=== PATIENT | female | born 1945 | race Caucasian/White ===

== ENCOUNTER 2016-12-03 05:57 | Day surgery (SDC) | payer MEDICARE ==
[~2016-12-03] VITALS: Ht 151.1 cm; Wt 62.8 kg
[~2016-12-03 05:57] MED LIST: CALC-191 PO; HYDR25TA PO; LISI10TA7 PO; OMEP-96 PO
--- OUTSIDE RECORDS SUMMARY | 2016-12-03 06:06 | XMS REPORT | Continuity of Care Document ---
Author Author [facility] Organization [facility] Address Unknown Phone Unavailable Allergies Active Description Code Type Severity Reaction Onset Reported/Identified Relationship to Patient Clinical Status Yes No Known Allergies Drug Allergy N/A N/A 11/24/2013 Yes No Known Drug Allergies Drug Allergy N/A N/A 11/24/2013 Yes No Known Food Allergies Food Allergy N/A N/A 11/24/2013 Medications Problems Date Dx Coded Attending Type Code Diagnosis Diagnosed By 11/24/2013 Wilton Cruz III, MD Final 276.8 HYPOPOTASSEMIA 11/24/2013 Wilton Cruz III, MD Final 401.9 HYPERTENSION NOS 11/24/2013 Wilton Cruz III, MD 787.01 NAUSEA W VOMITING 11/24/2013 Wilton Cruz III, MD Admitting 787.03 VOMITING ALONE Procedures Results Encounters ACCT No. Visit Date/Time Discharge Status Pt. Type Provider Facility Loc./Unit Complaint [id number] 11/01/2013 13:32:00 11/01/2013 23 :59:59 [facility] Outpatient
--- OUTSIDE RECORDS SUMMARY | 2016-12-03 06:06 | XMS REPORT | Referral Summary ---
Author Author [facility] Organization [facility] Address Unknown Phone Unavailable Care Team Providers Care Shop Teacher Name Role Phone Daniel Flores Primary Care Physician [phone] Encounter VC Date(s): 05/19/16 - 05/19/16 [facility], [facility] Medicine [address] [place], [place] [address] Discharge Disposition: 01-Home or Self Care Attending Physician: Bran Flores MD Admitting Physician: Bran Flores MD Vital Signs No data available for this section Problem List Condition Effective Dates Status Health Status Informant Benign essential Active hypertension (disorder)(Confirmed ) Osteopenia(Confirmed Active ) Allergies, Adverse Reactions, Alerts Substance Reaction Severity Status guaiFENesin nausea and diarrhea Moderate Active NKMA Active No Known Allergies Active Medications lisinopril 10 mg oral tablet See Instructions, TAKE ONE TABLET BY MOUTH EVERY DAY, # 30 tabs, 5 Refill(s), eRx: [facility] #[id number], TAKE ONE TABLET BY MOUTH EVERY DAY Start Date: 05/19/16 Status: Ordered PriLOSEC 20 mg oral delayed release capsule 1 caps, Oral, Daily, # 30 caps, 0 Refill(s), other reason (Rx) Start Date: 05/07/14 Status: Ordered Results Hematology Most recent to 1 oldest [Reference Range]: WBC [4.8-10.8 8.1 10*3/uL 10*3/uL] (05/19/16 10:35 AM) RBC [4.00-5.20] 4.59 (05/19/16 10:35 AM) Hgb [12.0-16.0 13.7 gm/dL gm/dL] (05/19/16 10:35 AM) Hct [37.0-47.0 %] 38.9 % (05/19/16 10:35 AM) MCV [82.0-99.0 fL] 84.7 fL (05/19/16 10:35 AM) MCH [27.0-32.0 pg] 29.8 pg (05/19/16 10:35 AM) MCHC [32.0-36.0 35.2 gm/dL gm/dL] (05/19/16 10:35 AM) RDW [11.5-14.5 %] 13.7 % (05/19/16 10:35 AM) Platelet [150-400 275 10*3/uL 10*3/uL] (05/19/16 10:35 AM) MPV [8.8-14.8 fL] 10.8 fL (05/19/16 10:35 AM) Immature 0.1 % Granulocytes (05/19/16 10:35 AM) [0.0-1.0 %] Neutrophils [51-75 61 % %] (05/19/16 10:35 AM) Lymphocytes [20-46 27 % %] (05/19/16 10:35 AM) Monocytes [4-11 %] 7 % (05/19/16 10:35 AM) Eosinophils [0-4 %] 5 % *HI* (05/19/16 10:35 AM) Basophils [0-2 %] 0 % (05/19/16 10:35 AM) Neutro Absolute 4.92 10*3 [1.90-7.00 10*3] (05/19/16 10:35 AM) Lymph Absolute 2.20 10*3 [0.80-3.30 10*3] (05/19/16 10:35 AM) [place] Absolute 0.55 10*3 [0.30-1.00 10*3] (05/19/16 10:35 AM) Eos Absolute 0.36 10*3 [0.00-0.50 10*3] (05/19/16 10:35 AM) Baso Absolute 0.03 10*3 [0.00-0.20 10*3] (05/19/16 10:35 AM) Chemistry Most recent to 1 oldest [Reference Range]: Sodium Lvl [135-144 143 mEq/L mEq/L] (05/19/16 10:35 AM) Potassium Lvl 4.2 mEq/L [3.5-5.2 mEq/L] (05/19/16 10:35 AM) Chloride [99-111 105 mEq/L mEq/L] (05/19/16 10:35 AM) CO2 [22-31 mEq/L] 27 mEq/L (05/19/16 10:35 AM) AGAP [3-20] 11 (05/19/16 10:35 AM) BUN [10-20 mg/dL] 26 mg/dL *HI* (05/19/16 10:35 AM) Glucose Lvl [70-99 85 mg/dL mg/dL] (05/19/16 10:35 AM) Creatinine Lvl 1.01 mg/dL [0.57-1.11 mg/dL] (05/19/16 10:35 AM) eGFR [>60 mL/min] 54 mL/min 1 *ABN* (05/19/16 10:35 AM) Calcium Lvl 10.2 mg/dL [8.9-10.5 mg/dL] (05/19/16 10:35 AM) Albumin Lvl [3.4-4.8 4.3 gm/dL gm/dL] (05/19/16 10:35 AM) Total Protein 6.8 gm/dL [6.0-7.6 gm/dL] (05/19/16 10:35 AM) Globulin [1.8-4.0 2.5 gm/dL gm/dL] (05/19/16 10:35 AM) ALT [0-55 U/L] 11 U/L (05/19/16 10:35 AM) AST [5-34 U/L] 17 U/L (05/19/16 10:35 AM) Alk Phos [40-150 66 U/L U/L] (05/19/16 10:35 AM) Bili Total [0.2-1.2 0.6 mg/dL mg/dL] (05/19/16 10:35 AM) Chol [0-199 mg/dL] 192 mg/dL (05/19/16 10:35 AM) Trig [0-149 mg/dL] 138 mg/dL (05/19/16 10:35 AM) HDL [40-84 mg/dL] 44 mg/dL (05/19/16 10:35 AM) LDL [0-130 mg/dL] 120 mg/dL (05/19/16 10:35 AM) VLDL Cholesterol 28 mg/dL [0-28 mg/dL] (05/19/16 10:35 AM) Cardiac Risk 4.4 [0.0-5.0] (05/19/16 10:35 AM) 1Result Comment: Multiply eGFR results by 1.21 for race. Immunizations Vaccine Date Refusal Reason tetanus/diphth/pertuss (Tdap) adult/adol 10/09/08 influenza virus vaccine, inactivated 04/26/16 influenza virus vaccine, inactivated 05/20/15 influenza virus vaccine, inactivated1 05/07/14 influenza virus vaccine, live 06/04/13 influenza virus vaccine, live 09/09/10 pneumococcal 13-valent conjugate vaccine 11/04/14 pneumococcal 23-polyvalent vaccine 04/04/09 1Result Comment: [05/08/2014] See scanned document Procedures Procedure Date Related Diagnosis Body Site DEXA - Dual energy X-ray photon 11/28/12 absorptiometry1 Mammogram2, 3 11/28/12 Colonoscopy4 04/25/07 Appendectomy 1950 1osteopenic 2osteopenic 3benign findings, not osteopenic 4F/U 10 years Social History Social History Type Response Smoking Status Never smoker Assessment and Plan No data available for this section
--- OUTSIDE RECORDS SUMMARY | 2016-12-03 06:06 | XMS REPORT | Referral Summary ---
Author Author [facility] Organization [facility] Address Unknown Phone Unavailable Care Team Providers Care First Press Operator Name Role Phone Daniel Flores Primary Care Physician [phone] Encounter VC Date(s): 06/28/16 - 06/28/16 [facility], [facility] Medicine [address] [place], [place] [address] Discharge Disposition: 01-Home or Self Care Attending [...] DAY, # 30 tabs, 5 Refill(s), eRx: [facility] #[id number], TAKE ONE TABLET BY MOUTH EVERY DAY Start Date: 05/19/16 Status: Ordered PriLOSEC 20 mg oral delayed release capsule 1 caps, Oral, Daily, # 30 caps, 0 Refill(s), other reason (Rx) Start Date: 05/07/14 Status: Ordered Results No data available for this section Immunizations Vaccine Date Refusal Reason tetanus/diphth/pertuss (Tdap) [...]
--- OUTSIDE RECORDS SUMMARY | 2016-12-03 06:06 | XMS REPORT | Referral Summary ---
Author Author [facility] Organization [facility] Address Unknown Phone Unavailable Care Team Providers Care Sales Engagement Executive Name Role Phone Daniel Flores Primary Care Physician [phone] Encounter Date(s): 07/12/16 - 07/12/16 [facility], [facility] Medicine [address] [place], [place] [address] Discharge Diagnosis: Osteopenia Discharge Diagnosis: Benign essential hypertension Discharge Disposition: 01-Home or Self Care Attending Physician: Bran Flores MD Admitting Physician: Bran Flores MD Vital Signs Most recent to 1 oldest [Reference Range]: Blood Pressure 150/88 mmHg [90-140/60-90 mmHg] *HI* (07/12/16 1:46 PM) Problem List Condition Effective Dates Status Health Status Informant Benign essential Active hypertension (disorder)(Confirmed ) Osteopenia(Confirmed Active ) Allergies, Adverse Reactions, Alerts Substance Reaction Severity Status guaiFENesin nausea and diarrhea Moderate Active NKMA Active No Known Allergies Active Medications lisinopril 10 mg oral tablet See Instructions, TAKE ONE TABLET BY MOUTH EVERY DAY, # 30 tabs, 5 Refill(s), eRx: [facility] #[id number], TAKE ONE TABLET BY MOUTH EVERY DAY [...] Smoking Status Never smoker Assessment and Plan Extracted from: Title: Office Visit Note Author: Bran Flores MD Date: 07/12/16 Assessment/Plan 1.Benign essential hypertension No change. Stable Ordered: Office Visit Level 3 Est 53299 2.Osteopenia No change. See as needed for this. Ordered: Office Visit Level 3 Est 88701
--- OUTSIDE RECORDS SUMMARY | 2016-12-03 06:06 | XMS REPORT | Continuity of Care Document ---
Author Author [facility] Organization [facility] Address Unknown Phone Unavailable Care Team Providers Care Setup Operator Name Role Phone TOMA SRINIVASAN Primary Care Physician [phone] Insurance Providers Guarantor Billy Lawson Address [address] [place] [address] Email [facility]ayer [facility] Care Policy Number [id number] Subscriber's Name Billy Lawson Relationship 18 Self Group Number [id number] Advance Directives Directive Response Recorded Date/Time Resuscitation Documents on File No 07/16/16 10:45am DPOA for Healthcare Only No 07/16/16 10:45am Living Will No 07/16/16 10:45am Problems No problem information available. Medications Current Home Medications Medication Dose Units Route Directions Days Qty Instructions Start Date Calcium Carbonate/Vitamin D3 (Calcium + Vitamin D Tablet) 1 Each Tablet 1,000 Mg Oral Daily 07/16/16 Lisinopril 10 Mg Tablet 1 Tab Oral Daily 30 07/15/16 Omeprazole Magnesium 20 Mg Capsule.dr [place] Cap Oral Bedtime as needed for Prn Orders 07/15/16 Social History Social History Problem Response Recorded Date/Time Onset Date Status Reason for Hospitalization REMOVAL OF PAINFUL HARDWARE OF RIGHT TOE AND REFUSION RIGHT METATARSAL 07/16/2016 1:48pm Not Applicable Not Applicable Chewing Tobacco Status No 07/15/2016 11:05am Not Applicable Not Applicable Hx Substance Use No 07/15/2016 11:05am Not Applicable Not Applicable Hx Alcohol Use No 07/15/2016 11:05am Not Applicable Not Applicable Has the pt used tobacco in the last 12 months No 07/16/2016 10:59am Not Applicable Not Applicable Query Response Start Date Stop Date Smoking Status Former smoker Hospital Discharge Instructions Instructions: Care Instructions: I was in the hospital because (patient own words): WORK ON RIGHT FOOT Discharge Diet: Regular Discharge Activity: Non-Weight Bearing See Surgery Packet Follow Up Appointments: 07/22/16 AT 3:00 IS YOUR FOLLOW UP APPOINMENT Pending Lab / Results: No Pending Lab Expected Signs/Symptoms: Numbness for 2 hours Notify Physician If: Excessive pain Bleeding through dressing During Business Hours:: Please call the physician's office at [phone] After Business Hours:: Please call Dr. Bond at [phone] Pain Management/Treatment: Pain medicine as directed Wound/Incision Care: Do not touch dressing or get it wet. Durable Medical Equipment: See Surgery packet Condition at time of discharge: Good Plan of Care Discharge Date 07/16/16 2:41pm Instructions/Education Provided JOSE Bond Discharge Instructions Prescriptions See Medication Section Functional Status Query Response Date Recorded Ability to complete ADL's impeded by Impaired Mobility July 16, 2016 10:45am Allergies, Adverse Reactions, Alerts Allergen Type Severity Reaction Status Last Updated No Known Drug Allergies Allergy Unknown Active 07/16/16 Immunizations Query Response on File Recorded Date/Time Hx Influenza Vaccination Y MAY 2016 07/15/16 11:05am Hx Pneumococcal Vaccination Y 201307/15/16 11:05am Hx Influenza Vaccination Y MAY 2016 07/15/16 11:05am Vital Signs Acute Vital Signs Vital Response Date/Time Temperature (Fahrenheit) 98.2 deg F (96.8 - 99.1) 07/16/2016 2:41pm Temperature (Calculated Celsius) 36.64713 degrees C (36.0 - 37.3) 07/16/2016 2:41pm Temperature Source Temporal 07/16/2016 2:41pm Pulse Rate (adult) 98 bpm (60 - 100) 07/16/2016 2:30pm Respiratory Rate 18 breaths/min (10 - 20) 07/16/2016 2:30pm O2 Sat by Pulse Oximetry 100 % (90 - 100) 07/16/2016 2:30pm Oxygen Delivery Method Room Air 07/16/2016 2:30pm Blood Pressure 120/58 mm Hg 07/16/2016 2:30pm Blood Pressure Source Automatic Cuff 07/16/2016 2:30pm Height (Feet) 5 feet 07/16/2016 9:44am Height (Inches) 0.25 inches 07/16/2016 9:44am Weight (Kilograms) 62.700 kg 07/16/2016 9:44am Body Mass Index (BMI) 26.8 07/16/2016 9:44am Results Name: BILLY LAWSON Unit #: [id number] : 1945 Sex: F Admit Date: Loc / Svc: NSC Discharge Date: DIAGNOSTIC IMAGING REPORT Report #: [id number] [facility] Indication: ITS.REASON: RT FOOT HARDWARE REMOVAL/1ST MPJ FUSION PROCEDURE: RF FOOT RIGHT 2 VIEWS: Encounter: Initial Comparison: None Findings: Nine fluoroscopic spot images are submitted for interpretation. Images show removal of the fixation plate in the talonavicular region along with the threaded cannulated screws. Partially threaded cannulated screw remains projecting over the talonavicular joint followed by placement of a staple in this location as well. Arthrodesis hardware in the first MTP joint region is also present. Impression: Fluoroscopy as above Fluoroscopy time is 14.7 seconds. Fluoroscopy dose is 101.4 mRad. . Procedures Procedure Status Date Provider(s) Fusion, joint Completed 07/16/16 MESSI BOND DPM Encounters Encounter Location Arrival/Admit Date Discharge/Depart Date Attending Provider Departed [facility] Day Care [facility] 07/16/16 9:14am 07/16/16 2: 41pm MESSI BOND DPM
[2016-12-03 06:21] VITALS: BP 145/71; PULSE 80; RESP 16; TEMP 97.7; O2SAT 99; Ht 151.1 cm; Wt 62.8 kg
--- NOTE | 2016-12-03 06:47 | ANESPREOP ---
Anesthesia Record Date and Time DATE: 12/03/16 TIME: 06:46 Proposed Surgical Procedure LT. METATARSAL PHALANGEAL JOINT FUSION WITH 2ND HAMMERTOE NPO since: 1900 Allergies: Coded Allergies: No Known Drug Allergies (Verified Allergy, Unknown, 12/02/16) Ht/Wt/BMI Height: 4 ' 11.50 " Weight: 62.800 kg BMI: 27.5 kg/m2 Vital Signs Date Time Temp Pulse Resp B/P Pulse Ox O2 Delivery O2 Flow Rate FiO2 12/03/16 06:21 97.7 80 16 145/71 99 Room Air Medications Inpatient Medications Current Medications Medications (Trade) Dose Ordered Sig/Blaine Start Time Stop Time Status Last Admin Dose Admin Lactated Ringer's (Lactated Ringers) 1,000 ml @ 50 mls/hr Q20H 12/03/16 07:00 12/03/16 06:42 50 MLS/HR Calcium Carbonate/Vitamin D3 (Calcium + Vitamin D Tablet) 1 Each Tablet, 1,000 MG PO DAILY, (Reported) Last Taken: on 12/01/16 0600 Hydrochlorothiazide (Hydrochlorothiazide) 25 Mg Tablet, 1 TAB PO DAILY, (Reported) Last Taken: on 12/02/16 0500 Lisinopril (Lisinopril) 10 Mg Tablet, 1 TAB PO DAILY, (Reported) Last Taken: on 12/02/16 0500 Omeprazole Magnesium (Omeprazole Magnesium) 20 Mg Capsule.dr, 1 CAP PO HS PRN for PRN ORDERS, (Reported) Last Taken: on 12/03/16 0500 Currently on Beta Ruth: No Medical/Surgical History Anesthesia PMH: Reports: *Hypertension (CONTROLLED WITH MEDS), Arthritis, Reflux (controlled well with medicines) Smoking Status: Never smoker Use Chewing Tobacco?: No Second Hand Exposure: No Substance Use Type: does not use Alcohol Intake: none Past Surgical History Orthopedic Surgeries: Yes - RT MPJ FUSION X 2 Abdominal Surgeries: Genitourinary Surgeries: Cardiac Surgeries: Endocrine Surgeries: Reproductive Surgeries: Neurological Surgeries: Ear Surgeries: Nose Surgeries: Throat Surgeries: Other Surgeries: Anesthesia Adverse Reactions: FOUND none Family Hx of Anesthesia Advers: none Hx of Motion Sickness: No Pertinent Findings EKG Rhythm: Sinus Rhythm Physical Exam Respiratory: Bilat breath sounds equal, Lungs clear Cardiovascular: FOUND Regular rate, rhythm Airway Assessment Mallampati Score: II TMD: 3 Fingerbreadths Neck Extension: Good Overall Assessment: No Airway Concerns ASA: 2 Plan Anesthesia Plan: TIVA, LMA, GETA Discussion Discussed risks/options/alternatives of anesthesia and questions answered. Patient consents. Nursing pain assessment noted. Attestation Statement Prior to the delivery of any anesthetic medication, I examined the patient, developed the plan, obtained the patient's consent and discussed the risk and benefits of the procedure with the patient/guardian. HARI KAYE INSPECTOR BALANCE TRUING Dec 03, 2016 06:47
[2016-12-03] MEDS ORDERED: FENTANYL 100mcg/2ml INJECTION ONE (06:51)
[2016-12-03 06:56] LABS: ANION GAP 14 MEQ/L (5-15); BUN/CREATININE RATIO 33 RATIO (6-26); CALCIUM 10.2 MG/DL (8.4-10.2); CHLORIDE 104 MEQ/L (98-107); CO2 - CARBON DIOXIDE 27 MEQ/L (22-30); CREATININE 1.1 MG/DL (0.7-1.2); GLOMERULAR FILTRATION RATE 49; GLUCOSE 89 MG/DL (65-110); SODIUM 145 MEQ/L (134-144)
[2016-12-03] MEDS ORDERED: LR 1,000 ML IV SCH (07:00)
[2016-12-03] MEDS ORDERED: DEXAMETHASONE 4mg/ml - 1ml INJECTION ONE (07:00)
[2016-12-03] MEDS ORDERED: LIDOCAINE 1% (10mg/ml) 2ml SDV INJ ONE (07:00)
[2016-12-03] MEDS ORDERED: LIDOCAINE 1% (10mg/ml) 30ml SDV ONE (07:00)
[2016-12-03] MEDS ORDERED: BUPIVACAINE 0.5% (5mg/ml) 30ml INJ SDV ONE (07:00)
[2016-12-03] MEDS ORDERED: PHENYLEPHRINE 10mg/ml INJECTION ONE (07:57)
[2016-12-03] MEDS ORDERED: SALINE FLUSH 10ml SYRINGE ONE (07:57)
[2016-12-03] MEDS ORDERED: CEFAZOLIN 1 GRAM INJECTION IV ONE (08:00)
[2016-12-03 08:38] VITALS: BP 116/56; PULSE 75; RESP 14; TEMP 97.6; O2SAT 96
--- NOTE | 2016-12-03 08:49 | ANESPO ---
Post-Op Note Date 12/03/16 Time: 08:48 Status Pt Participated in Evaluation: Pt participated in person Vital Signs Date Time Temp Pulse Resp B/P Pulse Ox O2 Delivery O2 Flow Rate FiO2 12/03/16 06:21 97.7 80 16 145/71 99 Room Air Respiratory Function: Airway patent, Regular respirations Cardiovascular Function: Regular pulse Mental Status: Alert/oriented Pain Level Intensity: 0 Hydration: Taking po fluids Complications during Recovery None apparent Follow-Up Instructions Instructions Per Surgeon HARI KAYE CRNA Dec 03, 2016 08:49
[2016-12-03 08:55] VITALS: BP 122/68; PULSE 73; RESP 15; O2SAT 99
[2016-12-03 09:10] VITALS: BP 110/53; PULSE 78; RESP 14; O2SAT 98
[2016-12-03 09:25] VITALS: BP 118/61; PULSE 75; RESP 17; O2SAT 99
--- NOTE | 2016-12-03 10:02 | DI ---
Indication: ITS.REASON: POST OP PROCEDURE: FOOT LEFT 2 VIEWS: Encounter: Initial Comparison: None Findings: Postoperative changes of first metatarsophalangeal joint arthrodesis noted with a fixation plate and multiple screws. Osteotomy also noted involving the distal aspect of the second toe proximal phalanx. Expected postoperative subcutaneous gas. Impression: Postoperative changes as above. .
--- NOTE | 2016-12-03 18:01 | OPNOTEF ---
DATE OF OPERATION: 12/03/2016 PREOPERATIVE DIAGNOSIS Painful left bunion and second hammertoe. POSTOPERATIVE DIAGNOSIS Same. OPERATION First MPJ fusion of the left foot as well as arthroplasty of the PIP joint of the second digit left foot. ANESTHESIA TIVA SURGEON Bong Martinez DPM HEMOSTASIS Pneumatic ankle tourniquet. ESTIMATED BLOOD LOSS Minimal. MATERIALS: MTP plate, left. 2.7 x 16-mm locking screw x 2. 2.7 x 14-mm locking screw x 1. 2.7 x 12-mm locking screw x 1. 3.6 x 22-mm lag screw x 1. 2.0 x 26 cannulated screw x 1. PATHOLOGY Bone and soft tissue. COMPLICATIONS None. DESCRIPTION OF OPERATIVE PROCEDURE The patient was brought to the operating room and placed on the operating table in the supine position. A pneumatic ankle tourniquet was then placed on the patient's left ankle. Following IV sedation, local anesthesia was obtained utilizing 10 cc of a 1:1 mixture of 1% lidocaine plain and 0.5% Marcaine plain. The foot was then scrubbed, prepped, and draped in the usual aseptic manner. An Esmarch bandage was then utilized to exsanguinate the patient's left foot and the tourniquet was inflated. Attention was directed to the second digit where two 2 cm semi-elliptical longitudinal incisions were made over the proximal interphalangeal joint of the digit. The incisions were then deepened through the subcutaneous tissues with care being taken to retract all vital neurovascular structures. The ellipse of skin was removed with sharp and blunt dissection. All bleeders were cauterized and ligated as necessary. A transverse tenotomy and capsulotomy was then performed to the proximal interphalangeal joint of the digit of the foot. The head of the proximal phalanx was then freed of all its soft tissue attachments. A double action bone cutter was then used to resect the head of the proximal phalanx which was then passed from the operating room table. The phalanx was then smoothed of its rough edges with a bone rasp. The wound was then flushed with copious amounts of sterile normal saline and the extensor tendon was reapproximated with 4-0 Vicryl. Skin was reapproximated with 4-0 Prolene. A 6-cm longitudinal incision was made at the level of the first metatarsophalangeal joint just medial to the extensor hallucis longus tendon. The incision was deepened using sharp and blunt dissection. Care was taken to retract all neurovascular structures. At this time a linear capsulotomy was performed, freeing the head of the first metatarsal as well as the base of the proximal soft tissue attachment. Next, using the reaming system by [employer], we denuded all cartilage from the head of the first metatarsal as well as the base of the proximal phalanx. Prior to this we noted the bunion was severely deformed. Once we got down to healthy bone all rough edges were smoothed using power equipment and irrigation was performed and flushed with sterile saline. We positioned an MTPCP plate dorsally and fixated it under standardized technique using the screws listed. The fusion site was noted to be in excellent position and stability. The wound was then closed up in layers using 3 -0 Vicryl, 4-0 Vicryl and 4-0 Prolene. Upon completion of the procedure, the incision was dressed with Betadine soaked 4x4 and covered with sterile compressive dressing such as 4x4's and Niki. The tourniquet was then deflated and immediate hyperemia returned to all digits. A total of 10 cc of an 8:2 mixture of 0.5% Marcaine and Dexamethasone was infiltrated around the surgical site. The foot was then Miah-wrapped. The patient tolerated the procedure well and was transferred to the recovery room with all vital signs stable and vascular status intact to the feet. Following postoperative monitoring the patient will be discharged and given instructions and prescriptions which were discussed prior to the surgery. AALIYAH
== END 2016-12-03 09:30 | disposition home or self-care (01) ==
LOC: NSC 05:57
PROVIDERS: ATTEND Podiatrist
DX: M21.612 Bunion of left foot (principal); M20.42 Other hammer toe(s) (acquired), left foot; I10 Essential (primary) hypertension; K21.9 Gastro-esophageal reflux disease without esophagitis; Z79.899 Other long term (current) drug therapy; Z88.8 Allergy status to other drugs, medicaments and biological substances
CPT/HCPCS: 28285; 28750; 73620; 80048; C1713; J0690; J1100; J2370; J3010; J7120